=== PATIENT | male | born 1995 | race Caucasian/White ===

== ENCOUNTER 2022-12-19 07:26 | Emergency (ER) | payer SELFPAY ==
[2022-12-19 07:26] VITALS: BP 147/112; PULSE 96; RESP 15; TEMP 35.6; O2SAT 97; BMI 49.5
--- NOTE | 2022-12-19 07:41 | ED.VIS.DENTA ---
HPI History of Present Illness Chief Complaint: Dental Narrative Narrative: 27-year-old male presenting with pain in the left upper maxillary teeth. He states has been going on for 6 months. This has been on and off. He states he initially saw a dentist in [place] when he was there but decided to move home to [place] and has not seen anybody in 6 months. No fevers. No trouble swallowing or breathing. No nausea or vomiting. No direct trauma. PFSH PFSH Medical History no medical history Home Medications etodolac 300 mg capsule 300 mg PO TIDCM ##30 09/18/15 [Rx Last Taken Unknown] lisinopril 20 mg-hydrochlorothiazide 12.5 mg tablet (Zestoretic) 1 ea PO DAILY 09/18/15 [History Last Taken Unknown] omeprazole 20 mg capsule,delayed release 20 mg PO DAILY 09/18/15 [History Last Taken Unknown] oxaprozin 600 mg tablet 600 mg PO BID 09/18/15 [History Last Taken Unknown] amoxicillin 875 mg-potassium clavulanate 125 mg tablet 1 tab PO BID #20 tabs 12/19/22 [Rx Last Taken Unknown] Allergy/AdvReac Type Severity Reaction Status Date / Time coconut Allergy Fever and Verified 12/19/22 07:28 skin rash Fish Containing Products Allergy Fever and Verified 12/19/22 07:28 skin rash Family History no significant family his Surgical History no surgical history Social History Smoking Status: Current every day smoker tobacco type: cigarettes ROS ROS ED Constitutional Constitutional ED: Denies chills, fever(s) or sweats Eyes Eyes: Denies blurry vision or change in vision ENT ENT ED: Reports other Details: Dental numbering dental numbering dental pain ; Denies ear pain or sore throat Cardiovascular Cardiovascular: Denies chest pain, palpitations or racing heartbeat Respiratory/Chest Respiratory/Chest: Denies cough, dyspnea or sputum Gastrointestinal Gastrointestinal: Denies abdominal pain, constipation, diarrhea, nausea or vomiting Genitourinary Genitourinary ED: Denies dysuria, hematuria or urinary frequency Musculoskeletal Musculoskeletal: Denies arthralgias, myalgias or neck pain Integumentary Denies abscess, Abrasions or rash Neurologic Neurologic: Denies headache(s), paresthesias or weakness Psychiatric Psychiatric: Denies anxiety, depression, suicidal ideation or suicidal thoughts Endocrine Endocrinology: Denies polydipsia or polyuria EXAM Physical Exam Const Vital Signs: 12/19/22 07:26 Temperature 96.1 F L Temperature Source Temporal Pulse Rate 96 Respiratory Rate 15 Blood Pressure 147/112 H Blood Pressure Mean 123 Pulse Ox 97 Oxygen Delivery Method Room Air Positive well nourished Constitutional Narrative: Facial swelling noted over the left cheek. General Appearance ED: NAD HEENT HEENT Narrative: Tooth percussion tenderness at tooth #16. No sublingual or submandibular fullness. No lymphadenopathy. Negative for trauma Mouth ED: Yes lips normal, Yes tongue normal and Yes salivary gland normal Mouth: lips normal, tongue normal and salivary gland normal Throat: posterior oropharynx normal Neck no lymphadenopathy Resp normal respiratory effort Cardio regular rate and regular rhythm Neuro oriented x3 and CN's II-XII intact bilaterally Sensorium / Orientation: alert Psych mental status grossly normal Skin no rashes or lesions noted MDM MDM MDM Narrative Medical decision making narrative: Patient presenting with dental pain. Nontraumatic. He is put on for about 6 months on and off. He initially saw somebody in [place] 6 months ago but has not established with anybody in [place]. He states he is in between insurance. He has not seen a dentist. Who presents with facial swelling and dental pain. No trouble swallowing or breathing. No sublingual edema. No submandibular fullness. No evidence of Rayne's angina. Patient started on Augmentin in the ER. He was given a dental referral sheet. Return precautions provided. Impression: 1. Dental pain 2. Dental infection Discharge Plan Triage Chief Complaint: Dental ED Provider: Carlos Adams Dx/Rx/DC Orders Instructions: ED Dental Pain, ED Dental Abscess Prescriptions: New amoxicillin-pot clavulanate 875-125 mg tablet 1 tab PO BID Qty: 20 0RF No Action lisinopril-hydrochlorothiazide [Zestoretic] 1 EACH tablet 1 ea PO DAILY omeprazole 20 MG capsule 20 mg PO DAILY oxaprozin 600 MG tablet 600 mg PO BID etodolac 300 MG capsule 300 mg PO TIDCM Qty: 30 0RF Rx Instructions: with food Primary Care Provider: Tj Sands Referrals: [facility] [Outside] - As soon as possible Tj Sands MD [Primary Care Provider] - Disposition Disposition: Home, Self Care
[2022-12-19] MEDS: Amox/Clavulanate 875 MG Tablet PO (07:48)
== END 2022-12-19 07:57 | disposition home or self-care (01) ==
LOC: ED 07:45
PROVIDERS: Emergency Provider Student in an Organized Health Care Education/Training Program; Visit Provider Student in an Organized Health Care Education/Training Program
DX: K04.7 Periapical abscess without sinus (principal); F17.210 Nicotine dependence, cigarettes, uncomplicated
CPT/HCPCS: 99283

== ENCOUNTER 2023-01-20 07:59 | Emergency (ER) | payer SELFPAY ==
[2023-01-20 07:59] VITALS: BP 173/110; PULSE 75; RESP 18; TEMP 35.7; O2SAT 100; BMI 48.9
--- NOTE | 2023-01-20 08:31 | CT_ITS ---
ACR Level 3 findings have been noted. An addendum which confirms receipt of the report will follow. INDICATION: Kidney Stone EXAMINATION: CT ABDOMEN AND PELVIS WITHOUT CONTRAST - CT Abdomen And Pelvis W/O Contrast Injection TECHNIQUE: Helically acquired images were obtained of the abdomen and pelvis without oral or IV contrast. A radiation dose optimization technique was used for this scan. IV Contrast dosage and agent: None. Oral contrast: None. RADIATION DOSAGE (If Supplied By Facility): CTDIvol = ( 24.18 ) mGy, DLP = ( 1377.32 ) mGycm COMPARISON: FINDINGS: LOWER CHEST: Lung bases are clear. No cardiomegaly or pericardial effusion. LIVER: Homogeneous. No focal mass. GALLBLADDER AND BILIARY TREE: There is questionable gallbladder wall thickening and hyperdensity inferiorly . No intra- or extrahepatic biliary ductal dilation. PANCREAS: No focal cystic or solid mass. SPLEEN: Normal size without focal cystic or solid mass. ADRENAL GLANDS: No nodules. KIDNEYS AND URETERS: There is questionable minimal left perinephric infiltrative change without evidence for obstructing stone or hydronephrosis. Kidneys appear otherwise unremarkable. No hydronephrosis. PERITONEUM: No ascites or free air. No other fluid collection. BOWEL: No evidence of acute appendicitis. No stomach or bowel distension. No focal inflammatory change. LYMPH NODES: No enlarged mesenteric or retroperitoneal lymph nodes. VESSELS: Aorta is non-dilated. URINARY BLADDER: There is thickening of the urinary bladder wall though evaluation is limited secondary to under distention. REPRODUCTIVE ORGANS: There is mild prominence of the prostate impinging the posterior wall of the urinary bladder. ABDOMINAL WALL: No discrete abdominal or pelvic wall hernia. BONES: No lytic or blastic abnormality. CT/Abdomen/Pelvis without Cont IMPRESSION: Thickening of the urinary bladder wall may be infectious or inflammatory in nature. Enlarged prostate. Clinical correlation recommended. Minimal left perinephric infiltrative change without evidence for obstructing stone. Correlate clinically for possibly recently passed stone. Gallbladder wall thickening and hyperdensity is suspected focally along the inferior aspect. Ultrasound recommended for further evaluation. Electronically Signed: Vidal Chandler, at 9:38 EDT ,
--- NOTE | 2023-01-20 08:32 | ED.VIS.BACK ---
HPI History of Present Illness Chief Complaint: Back Informant: patient Narrative Narrative: Presents with nontraumatic left flank pain since last evening. States he was in bed playing games with his significant other. There is no injuries no heavy lifting. No pain down the legs. However does state intermittent pain to his left side of abdomen. No urinary symptoms. Pain is subsided. No nausea or vomiting. Denies history of kidney stones. Denies history of gastric ulcers or kidney injury. Prior similar symptoms: No PFSH PFSH Home Medications etodolac 300 mg capsule 300 mg PO TIDCM ##30 09/18/15 [Rx Last Taken Unknown] lisinopril 20 mg-hydrochlorothiazide 12.5 mg tablet (Zestoretic) 1 ea PO DAILY 09/18/15 [History Last Taken Unknown] omeprazole 20 mg capsule,delayed release 20 mg PO DAILY 09/18/15 [History Last Taken Unknown] oxaprozin 600 mg tablet 600 mg PO BID 09/18/15 [History Last Taken Unknown] amoxicillin 875 mg-potassium clavulanate 125 mg tablet 1 tab PO BID #20 tabs 12/19/22 [Rx Last Taken Unknown] cefuroxime axetil 500 mg tablet 500 mg PO BID #14 tabs 01/20/23 [Rx Last Taken Unknown] Allergy/AdvReac Type Severity Reaction Status Date / Time coconut Allergy Fever and Verified 12/19/22 07:28 skin rash Fish Containing Products Allergy Fever and Verified 12/19/22 07:28 skin rash Social History Smoking Status: Current every day smoker tobacco type: cigarettes ROS ROS ED Constitutional Constitutional ED: Denies chills, fever(s) or sweats Eyes Eyes: Denies change in vision ENT ENT ED: Denies dysphagia or sore throat Cardiovascular Cardiovascular: Denies chest pain, leg edema, palpitations or racing heartbeat Respiratory/Chest Respiratory/Chest: Denies cough, dyspnea or dyspnea on exertion Gastrointestinal Gastrointestinal: Denies abdominal pain, diarrhea, nausea or vomiting Genitourinary Genitourinary ED: Denies dysuria, hematuria or urinary frequency Musculoskeletal Musculoskeletal: Reports back pain; Denies extremity pain or neck pain Integumentary Denies rash or wounds Neurologic Neurologic: Denies headache(s), paresthesias or weakness EXAM Physical Exam Const Vital Signs: 01/20/23 07:59 Temperature 96.2 F L Temperature Source Temporal Pulse Rate 75 Respiratory Rate 18 Blood Pressure 173/110 H Blood Pressure Mean 131 Pulse Ox 100 Oxygen Delivery Method Room Air Positive well nourished and well developed Constitutional Narrative: BMI 49 General Appearance ED: well developed and NAD HEENT Reports moist mucous membranes normocephalic and atraumatic Eyes PERRL, EOMs intact bilaterally and conjunctivae normal General Eye ED: Yes normal appearance of both eyes Neck no lymphadenopathy and supple General: Negative for tenderness Chest Wall Chest: Negative for tenderness Resp normal respiratory effort and normal air movement Effort and Inspection: symmetric chest movement; Negative for respiratory distress Cardio regular rate, regular rhythm and no murmurs Peripheral Pulses: pulses 2+ throughout GI normal to inspection, nondistended, normoactive bowel sounds and non-tender Palpation: Negative for guarding or rebound tenderness present Back/Spine no CVA tenderness and no thoracic nor lumbar tenderness Back/Spine Narrative: Tender deep palpation left lower lumbar, straight leg test was negative bilaterally. 2+ patellar reflex. Extremity normal to inspection General Extremety ED: Negative for edema or tenderness General Extremity: Negative for edema Neuro oriented x3 and no sensory deficits noted Sensorium / Orientation: awake and alert Skin no rashes or lesions noted and no wounds MDM MDM MDM Narrative Medical decision making narrative: Interventions / MDM: Differential diagnosis: Kidney stone, lumbar strain, pyelonephritis Diagnosis considered but do not suspect: Shingles however no rash My EKG interpretation: N/A Imaging independently reviewed and interpreted by myself: CT abdomen pelvis: No obstructive stone, there is thickening of the bladder slight stranding the left kidney, External documents reviewed: N/A Test considered but not ordered:N/A ED course: Patient reported nontraumatic pain intermittent rating to his left side. Currently more comfortable. With nontraumatic radicular symptoms to his abdomen, discussed rule out kidney stones. Work-up initiated, declines any pain medicines at this time. CT scan with stranding around left kidney urine also no signs of an blackmon. He is nontoxic. He started on Rocephin with urine culture sent and pending. Reevaluation slight headache he requested Tylenol which was ordered. Normal renal function at 0.6. He does report tobacco history. Thickened bladder with atypical complicated UTI for 27-year-old, he is referred to urology. Discussed with him cancer is in the differential. Return precautions. All questions were answered. Re-evaluation: stable Disposition discussed with patient/family/significant other: Patient Case discussed with consulting clinician: N/A This note was generated with [employer] dictation software. It may contain incorrect words, spelling, and punctuation that were not noted in checking the note before signing. Lab Data Attestation: I reviewed the patient's lab results. Labs: Laboratory Results - last 24 hr 01/20/23 01/20/23 08:48 08:53 WBC 12.6 H RBC 4.83 Hgb 13.9 Hct 43.8 MCV 90.7 MCH 28.8 MCHC 31.7 L RDW Std Deviation 44.9 H RDW Coeff of Vanessa 13.4 Plt Count 332 MPV 9.9 Immature Gran % (Auto) 0.500 Neut % (Auto) 76.0 H Lymph % (Auto) 14.[address] [place] % (Auto) 7.1 Eos % (Auto) 1.8 Baso % (Auto) 0.3 Absolute Neuts (auto) 9.6 H Absolute Lymphs (auto) 1.80 Nucleated RBC % 0 Sodium 139 Potassium 3.8 Chloride 107 Carbon Dioxide 31.0 Anion Gap 1 L BUN 5 L Creatinine 0.66 L Estim Creat Clear Calc 186.64 Est GFR (MDRD) Af Amer 182 Est GFR (MDRD) Non-Af 150 BUN/Creatinine Ratio 7.5 L Glucose 98 Calcium 8.9 Urine Color Yellow Urine Clarity Clear Urine pH 8.0 Ur Specific [place] 1.015 Urine Protein 30 H Urine Glucose (UA) Normal Urine Ketones Negative Urine Occult Blood 150 H Urine Nitrite Positive H Urine Bilirubin Negative Urine Urobilinogen Normal Ur Leukocyte Esterase 100 H Urine RBC 5-10 SEEN Urine WBC 10-25 SEEN Ur Squamous Epith Cells 0 SEEN Urine Bacteria 1+ Urine Mucus 0 SEEN Radiography Diagnostic Testing: Clinical Impression(s) from Imaging Studies Abdomen/Pelvis CT 01/20/23 08:31 IMPRESSION: Thickening of the urinary bladder wall may be infectious or inflammatory in nature. Enlarged prostate. Clinical correlation recommended. Minimal left perinephric infiltrative change without evidence for obstructing stone. Correlate clinically for possibly recently passed stone. Gallbladder wall thickening and hyperdensity is suspected focally along the inferior aspect. Ultrasound recommended for further evaluation. Electronically Signed: Vidal Chandler, at 9:38 EDT , Discharge Plan Triage Chief Complaint: Back ED Provider: Eric Cunha Dx/Rx/DC Orders Clinical Impression: Acute pyelonephritis, Tobacco dependence, Bladder wall thickening Instructions: ED Pyelonephritis, Male (Adult) Prescriptions: New cefuroxime axetil 500 mg tablet 500 mg PO BID Qty: 14 0RF No Action lisinopril-hydrochlorothiazide [Zestoretic] 1 EACH tablet 1 ea PO DAILY omeprazole 20 MG capsule 20 mg PO DAILY oxaprozin 600 MG tablet 600 mg PO BID etodolac 300 MG capsule 300 mg PO TIDCM Qty: 30 0RF Rx Instructions: with food amoxicillin-pot clavulanate 875-125 mg tablet 1 tab PO BID Qty: 20 0RF Stand Alone Forms: ED Work / School Excuse Primary Care Provider: Care Physician,No Primary Referrals: Eliana Tyson MD [Med Staff - Active Staff] - 1 Week Care Physician,No Primary [Primary Care Provider] - Activity Restrictions/Additional Instructions: CT scans slight stranding left kidney thickening bladder. No kidney stones. Urine with infection. Take antibiotic prescribed. May use Tylenol or ibuprofen as needed. Follow-up with urology for further evaluation as an outpatient. Return if worsening symptoms. Disposition Disposition: Home, Self Care
[2023-01-20] MEDS: 0.9% Normal Saline 1,000 ML 250 ML IV ×2 (08:57→08:59)
[2023-01-20 08:59] LABS: Absolute Neutrophil Count 9.6 X10^3/uL (2.0-7.7); Basophil# 0.04 X10^3/uL; Basophil% 0.3 % (0-1); Eosinophil# 0.23 X10^3/uL; Eosinophils% 1.8 % (0-5); Hematocrit 43.8 % (40-54); Hemoglobin 13.9 g/dL (13.0-16.5); Lymphocyte % 14.3 % (19-41); Mean Corp Hgb Conc 31.7 g/dL (32-36); Mean Corpuscular Hgb 28.8 pg (27.0-32.0); Mean Corpuscular Volume 90.7 fL (80-94); Mean Platelet Vol. 9.9 fl (6.2-12.0); Monocyte# 0.89 X10^3/uL; Monocyte% 7.1 % (0-10); NRBC Flagged by Analyzer 0 % (0-5); Platelet Count 332 K/mm3 (150-450); RBC Distribution Width CV 13.4 % (11.6-14.6); RBC Distribution Width SD 44.9 fl (35.1-43.9); Red Blood Count 4.83 M/mm3 (4.6-6.2); White Blood Count 12.6 K/mm3 (4.4-11.0)
[2023-01-20 09:09] LABS: Mucous, Urine 0 SEEN /hpf (<or=2+); Squamous Epithelial Cells - UA 0 SEEN /hpf (0-5)
[2023-01-20 09:10] LABS: Anion Gap 1 (5-15); BUN 5 mg/dL (7-18); BUN/Creat Ratio 7.5 RATIO (10-20); Calcium,Total 8.9 mg/dL (8.5-10.1); Chloride 107 mmol/L (98-107); Creatinine, Serum 0.66 mg/dL (0.70-1.30); EST Glomerular Filtration Rate 150 mL/min (>60); Est Glom Filt Rate - Afr Amer 182 mL/min (>60); Estimated Creatinine Clearance 186.64 ml/min; Glucose 98 mg/dL (74-106); Potassium 3.8 mmol/L (3.5-5.1); Sodium Level 139 mmol/L (136-145)
[2023-01-20 09:18] LABS: Color, Urine Yellow (Yellow); Glucose, Dipstick Normal (Normal); Ketone-Dipstick Negative (Negative); Leukocyte Esterase-Dipstick 100 /ul (Negative); Nitrite-Dipstick Positive (Negative); Occult Blood-Urine 150 /ul (Negative); Protein-Dipstick 30 mg/dl (Negative); Specific Gravity, Urine 1.015 (1.002-1.030); Urine Bilirubin Dipstick Negative (Negative); Urine Clarity Clear (Clear); Urine Urobilinogen Normal (Normal)
[2023-01-20 09:26] LABS: Bacteria 1+ /hpf (None Seen); Red Blood Cells-Urine 5-10 SEEN /hpf (0-5); White Blood Cells 10-25 SEEN /hpf (0-5)
[2023-01-20] MEDS: Ceftriaxone 1 GM/50 ML BAG IV (09:42)
[2023-01-20] MEDS: Acetaminophen 500 MG Tablet 1000 MG PO (10:02)
[2023-01-20 10:17] VITALS: BP 128/88; PULSE 87; RESP 16
== END 2023-01-20 10:17 | disposition home or self-care (01) ==
PROVIDERS: Emergency Provider Emergency Medicine; Visit Provider Emergency Medicine
DX: N10 Acute pyelonephritis (principal); F17.210 Nicotine dependence, cigarettes, uncomplicated; R93.41 Abnormal radiologic findings on diagnostic imaging of renal pelvis, ureter, or bladder
CPT/HCPCS: 74176; 80048; 81001; 85025; 87077; 87086; 87088; 87186; 96365; 99283; J7030; A4216

== ENCOUNTER 2023-05-16 12:51 | Emergency (ER) | payer MEDICAID, SELFPAY ==
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
[2023-05-16 12:53] VITALS: BP 159/100; PULSE 100; RESP 18; TEMP 36.8; O2SAT 98; BMI 50.5
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
== END 2023-05-16 16:26 | disposition home or self-care (01) ==
PROVIDERS: Emergency Provider Emergency Medicine; Visit Provider Emergency Medicine
DX: S19.9XXA Unspecified injury of neck, initial encounter (principal); E66.01 Morbid (severe) obesity due to excess calories; Z68.43 Body mass index [BMI] 50.0-59.9, adult; K21.9 Gastro-esophageal reflux disease without esophagitis; I10 Essential (primary) hypertension; G47.33 Obstructive sleep apnea (adult) (pediatric); S29.9XXA Unspecified injury of thorax, initial encounter; S61.512A Laceration without foreign body of left wrist, initial encounter; F17.210 Nicotine dependence, cigarettes, uncomplicated; V49.40XA Driver injured in collision with unspecified motor vehicles in traffic accident, initial encounter
CPT/HCPCS: 70498; 71046; 99285; Q9967; A4216